=== PATIENT | male | born 1990 | race American Indian/Alaskan Native ===

== ENCOUNTER 2016-05-12 17:01 | Emergency (ER) | payer SELFPAY ==
[2016-05-12 17:29] VITALS: BP 124/83
[2016-05-12 18:30] LABS: Hematocrit 42.6 % (35.5-45.6); Hemoglobin 13.5 gm/dl (11.8-15.2); Mean Corpuscular HGB Conc 32 % (32-34); Mean Corpuscular Hemoglobin 26 pg (28-32); Mean Corpuscular Volume 83 fl (84-94); Platelet Count 208 K/mm3 (140-440); Red Blood Count 5.12 M/mm3 (3.65-5.03); Red Cell Distribution Width 12.3 % (13.2-15.2); White Blood Count 3.6 K/mm3 (4.5-11.0)
[2016-05-12 18:46] LABS: Anion Gap 15 mmol/L; Blood Urea Nitrogen 9 mg/dL (9-20); Calcium 8.5 mg/dL (8.4-10.2); Carbon Dioxide 27 mmol/L (22-30); Chloride 97.1 mmol/L (98-107); Glucose 101 mg/dL (75-100); Sodium 135 mmol/L (137-145)
--- NOTE | 2016-05-12 23:13 | Emergency Department Report ---
- General Chief Complaint: Upper Respiratory Infection Stated Complaint: NOSE BLEED/COUGH Source: patient Mode of arrival: Ambulatory Limitations: No Limitations - History of Present Illness Initial Comments: 25-year-old male no past medical history presents with complaint of one week of fever chills body aches, slightly productive cough. States that he has had a few episodes of nose bleeding this week with sensation of congested nose. Patient states that he has had decreased appetite and experienced some tingling/ cramps in his fingers intermittently over the last 2 days. Patient is currently asymptomatic and has no current nasal bleeding. Awake alert and oriented 3 does not appear to be in acute distress, states he feels somewhat better than before. States he came to the ED because he does not currently have a primary doctor. Patient also states that due to his pentecostal believes he is limited in terms what medicines he is able to take. No stridor no wheezing on exam. Patient denies any rash. States he has slightly sore throat but it is not significant. MD Complaint: fever, cough, sore throat, nasal congestion Onset/Timin -: week(s) Severity: moderate Associated Symptoms: chills, rhinorrhea (patient states he has had slightly runny nose), cough, epistaxis (intermittent nose bleeding throughout the last several days. Patient has no current bleeding) - Related Data Previous Rx's Medication Instructions Recorded Last Taken Type Oxymetazoline 0.05% [Afrin] 1 spray NS QDAY PRN #1 bottle 05/12/16 Unknown Rx Allergies Allergy/AdvReac Type Severity Reaction Status Date / Time No Known Allergies Allergy Unverified 05/12/16 17:29 ED Review of Systems ROS: Stated complaint: NOSE BLEED/COUGH Other details as noted in HPI ED Past Medical Hx - Past Medical History Hx Hypertension: Yes - Social History Smoking Status: Never Smoker Substance Use Type: Marijuana - Medications Home Medications: Home Medications Medication Instructions Recorded Confirmed Last Taken Type Oxymetazoline 0.05% [Afrin] 1 spray NS QDAY PRN #1 bottle 05/12/16 Unknown Rx ED Physical Exam - General Limitations: No Limitations General appearance: alert, in no apparent distress - Head Head exam: Present: atraumatic, normocephalic - Eye Eye exam: Present: normal appearance, PERRL, EOMI - ENT ENT exam: Present: mucous membranes moist, other (slight injection/congestion with the nares bilaterally on nasal exam) - Expanded ENT Exam Expanded Mouth exam: Present: normal external inspection Teeth exam: Present: normal inspection Throat exam: Positive: normal inspection - Neck Neck exam: Present: normal inspection - Respiratory Respiratory exam: Present: normal lung sounds bilaterally. Absent: respiratory distress - Cardiovascular Cardiovascular Exam: Present: regular rate, normal rhythm. Absent: systolic murmur, diastolic murmur, rubs, gallop - GI/Abdominal GI/Abdominal exam: Present: soft, normal bowel sounds - Rectal Rectal exam: Present: deferred - Extremities Exam Extremities exam: Present: normal inspection - Back Exam Back exam: Present: normal inspection - Neurological Exam Neurological exam: Present: alert, oriented X3, CN II-XII intact, normal gait - Psychiatric Psychiatric exam: Present: normal affect, normal mood - Skin Skin exam: Present: warm, dry, intact, normal color. Absent: rash ED Course Vital Signs 05/12/16 17:22 Temperature 98.1 F Pulse Rate 67 Respiratory 18 Rate Blood Pressure 124/83 O2 Sat by Pulse 100 Oximetry ED Medical Decision Making - Lab Data Result diagrams: 05/12/16 18:16 05/12/16 18:16 - Medical Decision Making A/P: URI/viral syndrome 1-labs within normal limits, I review chest x-ray with Dr. Mcgill no consolidations and no appearance of pneumonia 2-patient states that he is unable to take conventional medicines because of pentecostal reasons, claims he is [employer]. 3- is nontoxic-appearing, is able tolerate by mouth, has no neurological deficits on exam. Strength proprioception intact upper and lower extremities, no facial paresis no facial paresthesias strength 5 out of 5 all extremities upper and lower bilaterally 4- 5- Critical care attestation.: If time is entered above; I have spent that time in minutes in the direct care of this critically ill patient, excluding procedure time. ED Disposition Clinical Impression: Viral syndrome Disposition: DISCHARGED TO HOME OR SELFCARE Is pt being admited?: No Does the pt Need Aspirin: No Condition: Stable Instructions: Influenza (ED), Viral Syndrome (ED) Prescriptions: Oxymetazoline 0.05% [Afrin] 1 spray NS QDAY PRN #1 bottle PRN Reason: Bleeding Referrals: ARMOND PAULSON MD [Staff Physician] - 3-5 Days [facility] [Outside] - 3-5 Days Forms: Work/School Release Form(ED) Time of Disposition: 23:13
--- NOTE | 2016-05-13 08:02 | XRay Report ---
ROUTINE CHEST, TWO VIEWS: HISTORY: Cough, hemoptysis. The trachea, heart, mediastinal contour, lung ocasio and bony thorax are unremarkable. IMPRESSION: Unremarkable chest x-ray.
== END 2016-05-12 23:28 | disposition home or self-care (01) ==
LOC: ED 17:01
DX: B34.9 Viral infection, unspecified (principal); I10 Essential (primary) hypertension; F12.10 Cannabis abuse, uncomplicated
CPT/HCPCS: 36415; 71020; 80048; 85027; 87400; 99284